=== PATIENT | male | born 1950 | race Caucasian/White ===

== ENCOUNTER 2017-07-15 05:59 | Inpatient (IN) | payer MEDICARE, BC ==
--- NOTE | 2017-07-04 02:01 | HP ---
AMENDED REPORT NOW INCLUDES COSIGNER DESIGNATION - ESIGNED BEFORE ADJUSTMENT HISTORY AND PHYSICAL: DATE OF ADMISSION/SURGERY: 07/15/17 DATE OF HISTORY AND PHYSICAL: 07/02/17 ACTIVITY: Dr. Rush Bose * (DICTATED BY SAKINA MEDEROS) PROCEDURE: Right total shoulder reverse. CHIEF COMPLAINT: Right shoulder pain. HISTORY OF PRESENT ILLNESS: Ezequiel is a 66-year-old male who presents to clinic for right shoulder pain for the last 15 years. He states 15 years ago, he fell off his front porch and hit his shoulder on concrete. He has had x-rays and MRI since then, which revealed arthritis and a rotator cuff tear. He has continued to have mild discomfort in the shoulder. He did see Dr. Vanegas several years ago, but was having minimal pain, and was not ready for surgery at that time. He is now in constant, achy, 2/10 pain in his lateral shoulder at rest with intermittent sharp shooting pain to 10/10 with certain movements. The pain is worse with overhead and behind the back movements. He reports intermittent snapping of the shoulder. He has had difficulty sleeping due to the pain. It is interfering with activities of daily living such as eating and combing. He is taking Tylenol and ibuprofen for pain daily. He reports no recent injuries. He has not yet received an injection in the shoulder. He denies numbness and tingling. He is right handed. He is here today for history and physical. He previously discussed the surgical options with Dr. Bose and all questions were answered at that time. He does endorse current cold with cough. He was seen by his primary care earlier this week and has appointment with his library clerk prior to his surgery. PAST MEDICAL HISTORY: Significant for hypertension, asthma, gout, arthritis, diverticulitis, and GERD along with obstructive sleep apnea. PAST SURGICAL HISTORY: Hernia repair x3, sinus surgery, and a knee replacement. CURRENT MEDICATIONS: Include: 1. Flomax. 2. Ranitidine. 3. Ventolin as needed. 4. Azelastine HCl ophthalmic. 5. Xopenex. 6. Theophylline. 7. Amlodipine. 8. Benicar. 9. Nexium. 10. Allopurinol. 11. Dulera. 12. Ipratropium. 13. Daily multivitamin. ALLERGIES: He has no known drug allergies and no allergies to tape or adhesives. FAMILY MEDICAL HISTORY: Significant for father with stroke, hypertension, and diabetes. Mother with a pacemaker and brother who at 49 had a heart attack. SOCIAL HISTORY: He is a never smoker. He does drink alcohol occasionally and he denies any illicit drug use. REVIEW OF SYSTEMS: No previous problems with anesthesia, no history of DVT, P.E. Positive for sinus headaches, cough, shortness of breath with exertion which is his baseline, his current complaint as well and he does state that he is able to walk up flight of stairs or city block without stopping. He denies history of infectious disease such as MRSA, hepatitis C, and HIV. Otherwise, 14 - point review of systems was negative. PHYSICAL EXAMINATION GENERAL: Ezequiel is a well-nourished, well-developed, 66-year-old male, in no acute distress. Alert and oriented x3. No gross neurologic deficiencies. He is ambulating without a limp. VITAL SIGNS: Height 71 inches, weight 235 pounds, pulse 68, blood pressure 122/ 72, respirations 16, temperature 98.5, pain level 3, BMI 32.8. HEENT: Normocephalic, atraumatic. Pupils equally round and reactive to light. Extraocular motions intact. NECK: Supple. No palpable cervical lymph nodes. Thyroid is smooth and nontender. PULMONARY: His lungs have multiple wheezes as well as some rhonchi. CARDIAC: Regular rate and rhythm with no murmurs, rubs, or gallops. No pedal edema. 2+ pedal pulses. ABDOMEN: Soft and nontender. MUSCULOSKELETAL: Right upper extremity, skin is intact. No warmth or erythema. Nontender to palpation. Forward flexion to 90 degrees, abduction to 90 degrees, external rotation to 75 degrees, internal rotation to posterior iliac spine. 4/5 strength and pain to supraspinatus, infraspinatus, belly press and bear hug. Positive Neer's, positive Speed's, Marsh-Fan, and O' Subhash. 2+ radial pulse. Sensation intact to light touch distally. Left upper extremity, skin is intact with no warmth or erythema. Nontender to palpation. Full range of motion. Forward flexion to 180, abduction to 180, external rotation 75, internal rotation to T12. 5/5 strength to rotator cuff testing. 2 + radial pulse. Sensation intact to light touch distally. DIAGNOSTIC STUDIES: Multiple view x-ray of the right shoulder revealed bone-on - bone arthritis with significant spurring inferior to the humeral head and superior migration of the humeral head. Prior MRI from [address] Bose and revealed a complete rotator cuff tear with superior migration of the humeral head. IMPRESSION: Severe arthritis and massive rotator cuff tear. PLAN: Ezequiel Harvey is scheduled to undergo right total shoulder reverse on 07/15/[address] Rush Bose. He will return 10 to 14 days postop for followup and suture removal. A prescription for Percocet was sent to the patient's pharmacy of record for postoperative pain management. I-STOP was checked prior to sending his prescription. He will plan to bring his CPAP to the hospital for his overnight stay. SAKINA MEDEROS [id number]/[facility] #: [id number] AZIZA
[~2017-07-15 05:59] MED LIST: Buffered Lidocaine 0.9% SYRIN* 5 ML/SYR SYRINGE INTRADERM ONE; Buffered Lidocaine 0.9% SYRIN* 5 ML/SYR SYRINGE ONE; DiMENhydriNATE IV* 50 MG/ML VIAL IV PUSH PRN; Famotidine IV* 10 MG/ML 2 ML (20 mg) ONE; HYDROmorphone INJ* 1 MG/ML CARPUJECT SYRINGE IV PRN; Levalbuterol 0.63MG/3ML NEB* UNIT OF USE INH PRN; Ondansetron INJ* 2 MG/ML VIAL IV PRN; PROCHLORPERAZINE INJ 5 MG/ML 2 ML VIAL IV PRN; Scopolamine 1.5 mg* PATCH TRANSDERM PRN; ceFAZolin 2 GM PREMIX (*) 2 GM/50 ML BAG IVPB ONE; fentaNYL* 50 MCG/ML 2 ML VIAL (100 MCG VIAL) IV PRN
[2017-07-15] MEDS ORDERED: Metoclopramide TAB* 10 MG PO ONE (06:00)
[2017-07-15] MEDS ORDERED: Dexamethasone TAB* 4 MG PO ONE (06:00)
[2017-07-15] MEDS ORDERED: Famotidine IV* 10 MG/ML 2 ML (20 mg) IV ONE (06:00)
[2017-07-15] MEDS ORDERED: Metoclopramide TAB* 10 MG ONE (06:15)
[2017-07-15] MEDS ORDERED: Dexamethasone TAB* 4 MG ONE (06:15)
[2017-07-15] MEDS ORDERED: Atracurium* 10 MG/ML 10 ML VIAL ONE (07:00)
[2017-07-15] MEDS ORDERED: fentaNYL* 50 MCG/ML 5 ML VIAL (250 MCG VIAL) ONE (07:00)
[2017-07-15] MEDS ORDERED: KETAMINE HCL* 50 MG/ML 10 ML VIAL ONE (07:01)
[2017-07-15] MEDS ORDERED: Midazolam* 1 MG/ML 10 ML VIAL (10 MG) ONE (07:01)
[2017-07-15] MEDS ORDERED: Propofol* 10 MG/ML 20 ML BTL IV PUSH ONE (10:13)
[2017-07-15] MEDS ORDERED: Glycopyrrolate IV* 0.2 MG/ML 1 ML VIAL ONE (10:13)
[2017-07-15] MEDS ORDERED: Lidocaine 2% PF * 5 ML VIAL ONE (10:13)
[2017-07-15] MEDS ORDERED: Neostigmine Methylsulfate* 2 MG/2 ML SYRINGE ONE (10:13)
[2017-07-15] MEDS ORDERED: EPHEDrine (Pressors)* 50 MG/ML VIAL ONE (10:13)
[2017-07-15] MEDS ORDERED: Phenylephrine INJ* 10 MG/ML 1 ML VIAL (10 MG) ONE ×2 (10:13→11:23)
[2017-07-15] MEDS ORDERED: Lidocaine 2% PF* 10 ML AMP ONE (10:13)
[2017-07-15] MEDS ORDERED: Morphine INJ* 10 MG/ML 1 ML CARPUJECT ONE (10:32)
[2017-07-15] MEDS ORDERED: Polyethylene Glycol 3350* 17 GM PACKET PO PRN (10:53)
[2017-07-15] MEDS ORDERED: Bisacodyl SUPP* 10 MG SUPP PR PRN (10:53)
[2017-07-15] MEDS ORDERED: Magnesium Hydroxide LIQ* 30 ML UDC PO PRN (10:53)
[2017-07-15] MEDS ORDERED: diPHENhydraMINE IV* 50 MG/ML 1 ml VIAL (BENADRYL) IV PRN (10:53)
[2017-07-15] MEDS ORDERED: Ondansetron TAB* 4 MG PO PRN (10:53)
[2017-07-15] MEDS ORDERED: Ondansetron INJ* 2 MG/ML VIAL IV PRN (10:53)
[2017-07-15] MEDS ORDERED: Morphine INJ* 2 MG/ML 1 ML SYRINGE (TWO MG - NEW SYRINGE VERSION) IV PRN (10:53)
[2017-07-15] MEDS ORDERED: diPHENhydraMINE PO* 25 MG PO PRN (10:53)
[2017-07-15] MEDS ORDERED: oxyCODONE/Acetamin 5/325 MG* TAB PO PRN (10:53)
[2017-07-15] MEDS ORDERED: oxyCODONE TAB* 5 MG TAB PO PRN (10:53)
[2017-07-15] MEDS ORDERED: Acetaminophen TAB* 325 MG PO PRN (10:53)
[2017-07-15] MEDS ORDERED: Temazepam CAP* 15 MG PO PRN (10:53)
[2017-07-15] MEDS ORDERED: Levalbuterol 1.25MG/0.5ML NEB INH PRN (11:00)
[2017-07-15] MEDS ORDERED: Albuterol HFA INHALER* 8 gm MDI INH PRN (11:00)
[2017-07-15] MEDS ORDERED: AZELASTINE 0.05% BOTH EYES PRN (11:00)
--- NOTE | 2017-07-15 12:11 | RAD ---
Indication: Postop reversed total RIGHT glenohumeral joint replacement. Comparison: January 01, 2017 Technique: Internal rotation AP, external rotation Grashey, scapular Y, axillary views RIGHT shoulder Report: Reversed glenohumeral joint prosthesis in place with normal alignment. No periprosthetic fracture evident. Surgical drain in place. Postoperative soft tissue edema and gas noted. IMPRESSION: Unremarkable immediate postop appearance of the RIGHT total glenohumeral joint replacement.
--- NOTE | 2017-07-15 12:15 | RAD ---
Indication: Shortness of breath postop RIGHT total shoulder replacement. Comparison: July 02, 2017 Technique: Upright AP 1148 hours Report: Low lung volumes for this patient compared with the prior exam with moderate elevation of the RIGHT hemidiaphragm and proportional basilar atelectasis. No disproportionate alveolar consolidation to suggest pneumonia. Negative for pleural effusion or pneumothorax. The heart, pulmonary vasculature, and mediastinal contours are unremarkable. IMPRESSION: Low lung volumes with moderate elevation of the RIGHT hemidiaphragm with proportional compressive atelectasis.
[2017-07-15] MEDS ORDERED: Phenylephrine IV* 40 MCG/ML 10 ML SYRINGE ONE (12:35)
[2017-07-15 14:28] LABS: Hematocrit 38 % (42-52); Hemoglobin 12.8 g/dl (14.0-18.0); Mean Corpuscular HGB Conc 33 g/dl (31-36); Mean Corpuscular Hemoglobin 31 pg (27-31); Mean Corpuscular Volume 94 fL (80-94); Mean Platelet Volume 9 um3 (7.4-10.4); Red Blood Count 4.11 10^6/ul (4.0-5.4); Red Cell Distribution Width 14 % (10.5-15); White Blood Count 20.8 10^3/ul (3.5-10.8)
[2017-07-15 14:42] LABS: Albumin 3.4 g/dL (3.2-5.2); BUN/Creatinine Ratio 18.3 (8-20); Calcium 9.3 mg/dL (8.6-10.3); EGFR Non-African American 67.7 (>60); Potassium 3.7 mmol/L (3.5-5.0); Total Bilirubin 0.5 mg/dL (0.2-1.0); Total Protein 6.4 g/dL (6.4-8.9)
[2017-07-15 14:52] LABS: Magnesium 1.8 mg/dL (1.9-2.7)
[2017-07-15] MEDS ORDERED: ceFAZolin 1 GM VIAL(*) 1 GM in NS 0.9% 50 ML* 50 ML IVPB SCH (15:30)
[2017-07-15] MEDS ORDERED: ceFAZolin 1 GM ADVAN(*) 1 GM ADDV.VIAL IVPB ONE (15:36)
[2017-07-15] MEDS ORDERED: Magnesium Sulfate 2 GM IV* 2 GM/50 ML BAG IVPB ONE (16:00)
[2017-07-15] MEDS ORDERED: Bupivacaine 0.25% SDV* 30 ML ONE (16:14)
[2017-07-15] MEDS ORDERED: Fluticasone NASAL SPRAY 50MCG* 16 gm SPRAY BTL BOTH NARES SCH (18:00)
[2017-07-15] MEDS ORDERED: THEOPHYLLINE PO SCH (18:00)
[2017-07-15] MEDS ORDERED: Omeprazole CAP* 20 MG PO SCH (18:00)
[2017-07-15] MEDS ORDERED: amLODIPine TAB* 5 MG PO SCH (18:00)
[2017-07-15] MEDS ORDERED: Tamsulosin CAP* 0.4 MG PO SCH (18:00)
[2017-07-15] MEDS ORDERED: Piperacillin/Tazobac ADVAN(*) 3.375 GM in NS 0.9% 100 ML* 100 ML IVPB ONE (20:00)
[2017-07-15] MEDS ORDERED: Zosyn per Pharmacy* NOTE FOLLOW UP SCH (20:00)
[2017-07-15] MEDS ORDERED: ZOSYN 3.375 GM x ONE DOSE over 30 miuntes IVPB ×2 (20:00)
[2017-07-15] MEDS: Mometasone/Formoter 200/5 MDI INH SCH (20:32)
[2017-07-15] MEDS ORDERED: Theophylline TAB* 300 MG PO SCH (20:32)
--- NOTE | 2017-07-15 23:48 | CONS ---
CONSULTATION REPORT: DATE OF CONSULT: 07/15/17 PRINCIPAL ORTHOPEDIC SURGEON: Rush Bose MD PRIMARY CARE PHYSICIAN: Janette Vasquez NP, [facility]. REASON FOR CONSULT: Postoperative and intraoperative hypotension followed by tachycardia and lactic acidosis. HISTORY OF PRESENT ILLNESS: Ezequiel Harvey is a 66-year-old male with PMH as above, presenting for right shoulder surgery on the day of admission. Fifteen years prior, he had fallen on to concrete and subsequent imaging has revealed arthritis and rotator cuff tear. He had a preoperative H and P on 07/02/17, at which time he was noted to have a cough. He actually has a chronic cough which is productive. He was referred to [facility], given a Z-MARBELLA and 5 days of 50 mg prednisone which he finished approximately 8 days prior to admission on the . The patient received his olmesartan on the morning of admission and Norvasc night before admission. The patient reportedly required pressors mostly throughout the surgery. Evaluation of the anesthesia record is difficult to interpret given handwriting, nadirs of 72/51 recorded in the chart. In PACU, patient was also initially requiring pressors, therefore, hospitalist service was consulted for hypotension and possible need for transfer to ICU. The patient, however, did recover. His heart rate did increase to the low 100s and has been sustaining in the 120s. Lactic acidosis of 2.7 initially along with the white count of 20.8, hemoglobin 12.8, hematocrit 38, magnesium 1.8, creatinine 1.09 notable during evaluation in the PACU initially, repeated lactic acid lexi slightly to 4.0. The patient has been afebrile. Of note, he does report recent Xolair injections for his severe persistent asthma on Thursday prior to admission and aforementioned Z-MARBELLA for his chronic cough. PAST MEDICAL HISTORY: Hypertension, asthma, gout, arthritis, diverticulitis, GERD, and obstructive sleep apnea on nocturnal CPAP. MEDICATIONS: Home medications include: 1. Albuterol inhaler 1 puff inhaled q.4 hours p.r.n. 2. Allopurinol 300 mg p.o. q.a.m. 3. Amlodipine 10 mg p.o. q.p.m. 4. Aspirin 81 mg p.o. q.p.m. 5. Azelastine 0.05% ophthalmic drops both eyes b.i.d. p.r.n. 6. Multivitamin. 7. Theophylline 450 mg p.o. q.p.m. and 600 mg p.o. q.a.m. 8. Nexium 40 mg p.o. q.p.m. 9. Xopenex 1.25 mg q.6 hours p.r.n. inhaled. 10. Zantac 300 mg p.o. q.a.m. 11. Flomax 0.4 mg p.o. q.p.m. 12. Dulera 2 puffs inhaled b.i.d. 13. Benicar. Of note, the patient's has documentation of 40 mg p.o. q.a.m. while the chart documents olmesartan/hydrochlorothiazide 20/12.5 mg p.o. q.a.m. 14. Flonase 2 sprays both nares q.p.m. 15. Xolair 300 mg subcutaneous. ALLERGIES: No known drug allergies. FAMILY HISTORY: Mother with hypertension, dad CVA, and maternal grandfather prostate cancer. SOCIAL HISTORY: The patient is a never smoker and nondrinker. Retired. Formerly worked for [employer]. Glory Harvey is his medical surrogate, he is a full code. REVIEW OF SYSTEMS: A complete 14-point review of systems was negative except as per HPI. PHYSICAL EXAM: The patient was examined twice, first in the PACU and then on the floor. General Appearance: Normocephalic and atraumatic. Pupils are equal , round, and reactive to light. Extraocular motions intact. Neck: Supple. No cervical lymphadenopathy. Moist mucous membranes. Pulmonary: Anteriorly clear to auscultation bilaterally without wheezing, rales, or rhonchi. Cardiovascular: Tachycardic, no murmurs appreciated. Abdomen: Soft, nontender , and nondistended. Extremities: Warm and well perfused. No peripheral edema. Neuro: Moving all extremities. Sensation is intact. Cleat Maker strength intact. Skin: No lesions, no rashes, no nodules. DIAGNOSTIC STUDIES/LAB DATA: White count 20.8, hemoglobin 12.8, hematocrit 38, platelets 221,000. Sodium 136, potassium 3.7, chloride 105, carbon dioxide 23, BUN 20, creatinine 1.09, lactic acid 2.7 increased to 4.0, glucose 196, magnesium 1.8, total bili 0.5, AST 23, ALT 19, alk phos 69, and albumin 3.4. IMAGING: Recent chest x-ray demonstrates low lung volumes with moderate elevation of the right hemidiaphragm with proportional compressive atelectasis. Shoulder x- ray demonstrates unremarkable immediate postoperative appearance of the right total glenohumeral joint replacement. EKG demonstrates sinus tachycardia, heart rate 101, left axis deviation, no ST elevations or depressions. Intervals normal. ASSESSMENT AND PLAN: The patient is a 66-year-old male with complications of postop hypotension, tachycardia, lactic acidosis after reverse total right shoulder operation. Labs notable for leukocytosis, worsening lactic acidosis despite IV fluids and no excessive blood loss reported in the OR. He has recently been treated with azithromycin for his chronic cough and had a Xolair injection recently. He is getting postoperative cephazolin, but we will start empiric Zosyn for now to empirically cover for unknown etiology. Continue LR 150 cc an hour overnight. Repeat lactic acid in the morning. Blood pressures are stable. We will get an echocardiogram as I do not see that documented to investigate for possible valvular abnormalities as a reason for his anesthesia-induced hypotension. His lactic acidosis could secondary to just be due to a bit of ischemia secondary to his operative hypotension. For his asthma, we will continue his albuterol inhalers, theophylline. For DVT prophylaxis, he is on Lovenox 40 mg q.24 hours. His leukocytosis could be related to some of the dexamethasone that he got 12 mg once in the morning. Consider cortisol level for adrenal insufficiency in the setting of recent steroid use causing his hypotension, though now is resolved. For his history of gout, continue his allopurinol, postoperative pain per orthopedic service. [id number]/[facility] #: [id number] AZIZA
[2017-07-16] MEDS: oxyCODONE/Acetamin 5/325 MG* TAB PO PRN ×3 (01:42→13:48)
[2017-07-16 06:13] LABS: Hematocrit 34 % (42-52); Hemoglobin 11.5 g/dl (14.0-18.0)
[2017-07-16 06:26] LABS: BUN/Creatinine Ratio 15.9 (8-20); Calcium 9.2 mg/dL (8.6-10.3); EGFR African American 111.4 (>60); EGFR Non-African American 86.6 (>60); Potassium 4.2 mmol/L (3.5-5.0)
[2017-07-16] MEDS: Mometasone/Formoter 200/5 MDI INH SCH (08:06)
--- NOTE | 2017-07-16 08:44 | PN ---
Progress Note - Progress Note Date of Service: 07/16/17 SOAP: Subjective: [] Patient seen OOB in chair. His pain is well controlled and he feels he has done well with physical therapy. He denies any RUE numbness, chest pain or SOB. Objective: [] Vital Signs Temp 97.5 F 07/16/17 02:57 Pulse 86 07/16/17 08:09 Resp 16 07/16/17 08:09 BP 131/75 07/16/17 02:57 Pulse Ox 98 07/16/17 08:09 Intake & Output 07/15/17 07/16/17 07/16/17 18:59 06:59 18:59 Intake Total 4710 2174 Output Total 950 2775 Balance 3760 -601 Weight 233 lb 11.2 oz Intake: IV Fluids 3550 1509 LR 3500 1499 NS 50ML, Cefazolin 2G 50 Zosyn 10 IVPB 150 Magnesium 50 Zosyn 100 Oral 1160 515 Output: Hemovac Amount #1 350 125 Urine 350 2650 Estimated Blood Loss 250 Other: Estimated Void Medium # Bowel Movements 0 # Voids 1 Laboratory Last Values WBC 20.8 10^3/ul (3.5-10.8) H 07/15/17 14:10 RBC 4.11 10^6/ul (4.0-5.4) 07/15/17 14:10 Hgb 11.5 g/dl (14.0-18.0) L 07/16/17 05:59 Hct 34 % (42-52) L 07/16/17 05:59 MCV 94 fL (80-94) 07/15/17 14:10 MCH 31 pg (27-31) 07/15/17 14:10 MCHC 33 g/dl (31-36) 07/15/17 14:10 RDW 14 % (10.5-15) 07/15/17 14:10 Plt Count 221 10^3/ul (150-450) 07/15/17 14:10 MPV 9 um3 (7.4-10.4) 07/15/17 14:10 Neut % (Auto) 95.4 % (38-83) H 07/15/17 14:10 Lymph % (Auto) 2.7 % (25-47) L 07/15/17 14:10 [place] % (Auto) 1.7 % (1-9) 07/15/17 14:10 Eos % (Auto) 0 % (0-6) 07/15/17 14:10 Baso % (Auto) 0.2 % (0-2) 07/15/17 14:10 Absolute Neuts (auto) 19.8 10^3/ul (1.5-7.7) H 07/15/17 14:10 Absolute Lymphs (auto) 0.6 10^3/ul (1.0-4.8) L 07/15/17 14:10 Absolute Monos (auto) 0.4 10^3/ul (0-0.8) 07/15/17 14:10 Absolute Eos (auto) 0 10^3/ul (0-0.6) 07/15/17 14:10 Absolute Basos (auto) 0 10^3/ul (0-0.2) 07/15/17 14:10 Absolute Nucleated RBC 0.01 10^3/ul 07/15/17 14:10 Nucleated RBC % 0 07/15/17 14:10 Sodium 137 mmol/L (133-145) 07/16/17 05:58 Potassium 4.2 mmol/L (3.5-5.0) 07/16/17 05:58 Chloride 106 mmol/L (101-111) 07/16/17 05:58 Carbon Dioxide 24 mmol/L (22-32) 07/16/17 05:58 Anion Gap 7 mmol/L (2-11) 07/16/17 05:58 BUN 14 mg/dL (6-24) 07/16/17 05:58 Creatinine 0.88 mg/dL (0.67-1.17) 07/16/17 05:58 Est GFR ( Amer) 111.4 (>60) 07/16/17 05:58 Est GFR (Non-Af Amer) 86.6 (>60) 07/16/17 05:58 BUN/Creatinine Ratio 15.9 (8-20) 07/16/17 05:58 Glucose 138 mg/dL (70-100) H 07/16/17 05:58 Lactic Acid 0.9 mmol/L (0.5-2.0) 07/16/17 05:58 Calcium 9.2 mg/dL (8.6-10.3) 07/16/17 05:58 Magnesium 1.8 mg/dL (1.9-2.7) L 07/15/17 14:10 Total Bilirubin 0.50 mg/dL (0.2-1.0) 07/15/17 14:10 AST 23 U/L (13-39) 07/15/17 14:10 ALT 19 U/L (7-52) 07/15/17 14:10 Alkaline Phosphatase 69 U/L (34-104) 07/15/17 14:10 Total Protein 6.4 g/dL (6.4-8.9) 07/15/17 14:10 Albumin 3.4 g/dL (3.2-5.2) 07/15/17 14:10 Globulin 3.0 g/dL (2-4) 07/15/17 14:10 Albumin/Globulin Ratio 1.1 (1-3) 07/15/17 14:10 Procalcitonin 0.1 ng/mL (<0.6) 07/15/17 14:10 General: Well appearing, NAD RUE: Drain pulled without complication. Sensation and motor function intact distally throughout all digits. Radial pulse 2+. Brisk capillary refill distally. Assessment: []POD 1 sp Right total shoulder arthroplasty Plan: []Nonweightbearing RUE. No active ROM of shoulder. Continue elbow, wrist and hand pendulum exercises. No DVT/PE prophylaxis needed. Continue ASA 81 mg qd as regular home med. Discussed with Dr Joyner, hospitalist, prior to discharge. No need for further medical workup prior to discharge and no need for outpatient cardio workup <Ivon Foster - Last Filed: 07/16/17 13:14> - Progress Note SOAP: Subjective: [] Objective: [] Assessment: [] Plan: [] <Rush Bose - Last Filed: 07/18/17 09:10> Attestation Statement Scribe Attestation: Pt seen an examined at 6:30 AM. doing well. pain controlled. Denies numbness and tingling. AFVSS comfortable in bed. AAOx3. sling in place. dressing and drain in place. able to flex/ext digits, SILT grossly distally with 2+ radial pulse. A/P POD#1 from R TSA doing well, s/p hypotension post op drain to be pulled later today complete IV abx analgesia D/C when stable. PT/OT today <Rush Bose - Last Filed: 07/18/17 09:10>
[2017-07-16] MEDS ORDERED: Theophylline TAB* 300 MG PO SCH ×2 (09:00→18:00)
[2017-07-16] MEDS ORDERED: Hydrochlorothiazide TAB* 25 MG PO SCH (09:00)
[2017-07-16] MEDS ORDERED: Famotidine TAB* 20 MG PO SCH (09:00)
[2017-07-16] MEDS ORDERED: Allopurinol TAB* 300 MG PO SCH (09:00)
[2017-07-16] MEDS ORDERED: Valsartan TAB* 160 MG PO SCH (09:00)
[2017-07-16] MEDS ORDERED: [UNRECOGNIZED DRUG - OTHER] PO SCH (09:00)
[2017-07-16] MEDS ORDERED: HYDROCHLOROTHIAZIDE PO SCH (09:00)
[2017-07-16] MEDS ORDERED: Enoxaparin(*) 40 MG/0.4 ML SYR SUBCUT SCH (09:00)
[2017-07-16] MEDS ORDERED: Multivitamins/Minerals TAB PO SCH (09:00)
--- NOTE | 2017-07-16 09:13 | ECHO ---
Patient: LUCIANO VIEIRA [facility] Rec#: [id number] : 1950 Date: 07/16/2017 Age: 66y Height: 180.34 cm / 71.0 in Weight: 104.33 kg / 229.9 lbs Sex: M BSA: 2.24 Room#: 431 Admit Date#: 07/15/2017 Type: Inpatient Referring: Agustin Joyner Reading: Tim Nagel DO Intelligence Officer Basic: Cher Yu RDCS CC: Janette Vasquez NP Transthoracic Echocardiogram Indication: Abnormal EKG post op. BP: 131/75 HR: 80 Rhythm: NSR with PVCs Findings History: HTN, gout, arthritis, GERD, asthma, DEYSI on CPAP, s/p total right shoulder reverse. Technical Comments: The study quality is fair. The study is technically limited due to patient body habitus. Completed at 0830. Left Ventricle: The left ventricular chamber size is normal. Mild concentric left ventricular hypertrophy is observed. Global left ventricular wall motion and contractility are within normal limits. There is normal left ventricular systolic function. The estimated ejection fraction is 55-60%. Abnormal left ventricular diastolic filling is observed, consistent with impaired relaxation. Left Atrium: The left atrium is mildly dilated. Right Ventricle: The right ventricle is mildly dilated. The right ventricular global systolic function is normal. Right Atrium: The right atrium is mildly dilated. Aortic Valve: The aortic valve is trileaflet. The aortic valve leaflets are mildly thickened. There is a trace of aortic regurgitation. There is no evidence of aortic stenosis. Mitral Valve: The mitral valve leaflets are mildly thickened. There is a trace of mitral regurgitation. There is no evidence of mitral stenosis. Tricuspid Valve: The tricuspid valve leaflets are normal. There is trace tricuspid regurgitation. No pulmonary hypertension is noted. Pulmonic Valve: The pulmonic valve appears normal. There is trace to mild pulmonic regurgitation. There is no pulmonic stenosis. Pericardium: There is no significant pericardial effusion. Aorta: There is no dilatation of the ascending aorta. The aortic arch is not well visualized. The aortic root is normal in size. Pulmonary Artery: The main pulmonary artery is not well visualized. Venous: The inferior vena cava appears normal in size. There is a greater than 50% respiratory change in the inferior vena cava dimension. Conclusions The left ventricular chamber size is normal. Mild concentric left ventricular hypertrophy is observed. Global left ventricular wall motion and contractility are within normal limits. There is normal left ventricular systolic function. The estimated ejection fraction is 55-60%. The left atrium is mildly dilated. The right ventricle is mildly dilated. The right ventricular global systolic function is normal. The right atrium is mildly dilated. No significant valvular abnormalities noted Normal estimated PA systolic pressure No prior studies available for comparison at time of interpretation Measurements Name Value Normal Range RVIDd (AP) 2D 3.6 cm (0.9 - 2.6) RAd ISD 4CH 5.6 cm (3.4 - 4.9) RA (A4C)W 5 cm (2.9 - 4.6) IVSd (2D) 1.1 cm (0.6 - 1) LVPWd (2D) 1.1 cm (0.6 - 1) LVIDd (2D) 5.3 cm (3.6 - 5.4) LVIDs (2D) 3 cm - LV FS (2D) 48 % (25 - 45) Aortic Annulus 2.2 cm (1.4 - 2.6) Ao root diameter (2D) 3.5 cm (2.1 - 3.5) Ascending Ao 3 cm (2.1 - 3.4) LA dimension (AP) 2D 3.9 cm (2.3 - 3.8) LAd ISD 4CH 5.9 cm (2.9 - 5.3) LA ISD 4CH W 4.8 cm (2.5 - 4.5) Name Value Normal Range LA ESV SP 4CH (A/L) 77 ml - LA ESV SP 2CH (A/L) 76 ml - LA ESV BP (A/L) 78 ml - LA ESV BP (A/L) index 35 ml/m2 - LA ESV SP 4CH (MOD) 71 ml - LA ESV SP 2CH (MOD) 69 ml - Name Value Normal Range MV E-wave Vmax 1.01 m/sec - MV deceleration time 230 msec - MV A-wave Vmax 1.32 m/sec - MV E:A ratio 0.77 ratio - LV septal e' Vmax 0.07 m/sec - LV lateral e' Vmax 0.08 m/sec - LV E:e' septal ratio 14.43 ratio - LV E:e' lateral ratio 12.63 ratio - Name Value Normal Range AV Vmax 1.7 m/sec - AV VTI 32.18 cm - AV peak gradient 12.06 mmHg - AV mean gradient 6.36 mmHg - LVOT Vmax 1.3 m/sec - LVOT VTI 27.77 cm - LVOT peak gradient 6.73 mmHg - LVOT mean gradient 3 mmHg - Name Value Normal Range TR Vmax 2.5 m/sec - TR peak gradient 25 mmHg - RAP 3 mmHg - RVSP 28 mmHg - IVC diameter 1.9 cm - Name Value Normal Range PV Vmax 0.93 m/sec - PV peak gradient 3.51 mmHg - DC end-diastolic Vmax 1.27 m/sec -
[2017-07-16 12:53] VITALS: BP 135/65
[2017-07-16] MEDS ORDERED: Aspirin EC Low Dose* 81 MG TAB.EC PO SCH (18:00)
--- NOTE | 2017-07-16 19:34 | CONSULT ---
Subjective Date of Service: 07/16/17 Interval History: Tachycardia resolved, Lactic Acid resolved. Pt feeling well. ECHO in AM without any valvular abnormalities. Review of Systems - Measurements Intake and Output: Intake and Output Last 24 Hours 07/14/17 07/15/17 07/16/17 07/17/17 06:59 06:59 06:59 06:59 Intake Total 6884 272 Output Total 3725 Balance 3159 272 Weight 105.687 kg 106.005 kg Intake: IV Fluids 5059 272 LR 4999 272 NS 50ML, Cefazolin 2G 50 Zosyn 10 IVPB 150 Magnesium 50 Zosyn 100 Oral 1675 Output: Hemovac Amount #1 475 Urine 3000 Estimated Blood Loss 250 Other: Estimated Void Medium # Bowel Movements 0 # Voids 1 - Review of Systems General Comments: NAD Constitutional Symptoms: Negative: Weakness, Fatigue, Fever, Night Sweats, Unexplained Falls Dermatology: Positive: Normal HEENT: Positive: Normal Eyes: Positive: Normal Thyroid: Positive: Normal Pulmonary: Positive: Cough, Asthma Negative: Wheezing, Shortness of Breath, Home Oxygen Cardiology: Positive: Normal Negative: Chest Pain, Shortness of Breath, Palpitations, Edema Gastroenterology: Positive: Normal Genital - Urinary: Positive: Normal Musculoskeletal: Positive: Other - s/p reverse right shoulder for OA, rotator cuff tear Endocrinology: Positive: Normal Neurology: Positive: Normal Psychiatry: Positive: Normal Objective Vital Signs 07/15/17 07/15/17 07/15/17 19:47 20:00 20:12 Temperature 98.7 F Pulse Rate 109 111 109 Respiratory 16 20 Rate Blood Pressure 129/66 (mmHg) O2 Sat by Pulse 95 94 93 Oximetry 07/15/17 07/15/17 07/16/17 20:37 23:41 00:08 Temperature 98.3 F Pulse Rate 96 Respiratory 16 Rate Blood Pressure 122/60 (mmHg) O2 Sat by Pulse 93 92 Oximetry 07/16/17 07/16/17 07/16/17 01:42 02:57 04:15 Temperature 97.5 F Pulse Rate 94 Respiratory 20 16 18 Rate Blood Pressure 131/75 (mmHg) O2 Sat by Pulse 94 Oximetry 07/16/17 07/16/17 07/16/17 08:00 08:09 08:46 Temperature 97.3 F Pulse Rate 86 95 Respiratory 18 16 16 Rate Blood Pressure 146/71 (mmHg) O2 Sat by Pulse 96 98 96 Oximetry 07/16/17 07/16/17 07/16/17 08:53 11:45 13:48 Temperature 97.7 F Pulse Rate 87 Respiratory 16 18 16 Rate Blood Pressure 135/65 (mmHg) O2 Sat by Pulse 96 Oximetry 07/16/17 13:49 Temperature Pulse Rate Respiratory 16 Rate Blood Pressure (mmHg) O2 Sat by Pulse Oximetry Oxygen Devices in Use Now: Nasal Cannula Appearance: NAD Eyes: No Scleral Icterus, PERRLA Ears/Nose/Mouth/Throat: NL Teeth, Lips, Gums, Mucous Membranes Moist Neck: NL Appearance and Movements; NL JVP Respiratory: Symmetrical Chest Expansion and Respiratory Effort, Clear to Auscultation Cardiovascular: NL Sounds; No Murmurs; No JVD, RRR Abdominal: NL Sounds; No Tenderness; No Distention, No Hepatosplenomegaly Extremities: No Edema, - - right shoulder sling Skin: No Rash or Ulcers, No Nodules or Sclerosis Neurological: Alert and Oriented x 3, NL Sensation, NL Muscle Strength and Tone Nutrition: Taking PO's Result Diagrams: 07/16/17 05:59 07/16/17 05:58 Additional Lab and Data: Laboratory Results - last 24 hr 07/15/17 07/16/17 07/16/17 14:10 05:58 05:58 Hgb Hct Sodium 137 Potassium 4.2 Chloride 106 Carbon Dioxide 24 Anion Gap 7 BUN 14 Creatinine 0.88 Est GFR ( Amer) 111.4 Est GFR (Non-Af Amer) 86.6 BUN/Creatinine Ratio 15.9 Glucose 138 H Lactic Acid 0.9 Calcium 9.2 Procalcitonin 0.1 07/16/17 05:59 Hgb 11.5 L Hct 34 L Sodium Potassium Chloride Carbon Dioxide Anion Gap BUN Creatinine Est GFR ( Amer) Est GFR (Non-Af Amer) BUN/Creatinine Ratio Glucose Lactic Acid Calcium Procalcitonin Microbiology and Other Data: Microbiology 07/15/17 08:34 Tissue - Shoulder Right Wound Gram Stain - Final 07/15/17 08:34 Tissue - Shoulder Right Tissue Culture - Preliminary No Growth Day 1 07/15/17 08:34 Tissue - Shoulder Right Skin and Soft Tissue MRSA/MSSA (PCR - Final Mrsa Negative S.aureus Negative Assessment/Plan - Billing Plan By Medical Problem: 1. Perioperative hypotension. Tachycardia. Leukocytosis (did get dexamethasone) - procalcitonin negative. - stop empiric zosyn. s/p 2 doses ancef also. no localized source of infection. Tissue cultures negative. Afebrile and no Bcx were drawn. - ECHO w/o valvular abnormalities - BP, HR both have normalized. - stop IVF - discharge pending 2. s/p reverse right shoulder replacement, rehab with PT and per ortho. 3. asthma, severe persistent - continue theophyline, inhalers prn, xolair VTE PPX: per ortho Diet: regular Code Status: FULL Admission Status and Rationale: discharge order placed. Attending: Agustin Joyner
--- NOTE | 2017-07-17 11:34 | DS ---
DISCHARGE SUMMARY: DATE OF ADMISSION: 07/15/17 DATE OF DISCHARGE: 07/16/17 DATE OF SURGERY: 07/15/17 SURGEON: Rush Bose MD * (DICTATED BY SAKINA LIU) PROCEDURE: Right total shoulder reverse. CHIEF COMPLAINT: Right shoulder pain. HISTORY: Ezequiel is a 66-year-old male with right shoulder pain x16 years after falling off a porch and hitting his shoulder. He had imaging that revealed arthritis and rotator cuff tear. At this point, he has a constant achy 2/10 pain of his lateral shoulder with intermittent 10/10 sharp pain. He agreed to a right total shoulder reverse. HOSPITAL COURSE: The patient was admitted to [facility] on 07/15/17 when he underwent a right total shoulder reverse without complications. He did become hypotensive during surgery followed by tachycardia. He ended up requiring pressors in surgery and in the PACU his lactic acid lexi slightly to 4.0. Patient was afebrile. On postop day 1, white blood cell count of 20.8, hemoglobin 12.8, hematocrit 38, lactic acid 2.7, magnesium 1.8. He was followed by the hospitalist service that his white blood cell count could be due to dexamethasone use. Later in the day on 07/15/17, his lactic acid was 4.0. On 07/16, hemoglobin 11.5, hematocrit 34, lactic acid 0.9. His electrocardiogram on 07/15 showed sinus tachycardia, markedly posterior QRS axis, transition with no significant changes since the previous record. On 07/16, postop day 1, and labs were already reviewed. Reports he had an echocardiogram , left ventricular chamber size is normal. Mild concentric left ventricular hypertrophy is observed, global left ventricular wall motion and contractility are within limits. There is normal left ventricular systolic function. The ejection fraction is 55 to 60. The left atrium is mildly dilated. The right ventricle is mildly dilated. The right ventricle global systolic function is normal. The right atrium is mildly dilated. No significant valvular abnormality is noted. Normal estimated PA systolic pressure. Exam on 07/16, well appearing, in no acute distress. Drain was pulled without complication with tip intact. Sensation and motor function were intact distally throughout the digits of right hand. Radial pulse 2+ and brisk capillary refill distally. Vital signs on the day of discharge: Temp 97.7, pulse rate 87, respiratory rate 18, oxygen saturation 96%, blood pressure 135/65. Spoke with hospitalist Dr. Joyner prior to discharge to confirm that no further medical workup or cardiac workup were needed at this time. Patient on postop day 1 was considered medically stable for discharge. DISCHARGE CONDITION: Stable. DISCHARGE MEDICATIONS: 1. Theophylline 450 mg q. p.m. 2. Multivitamin one tab p.o. q. a.m. 3. Azelastine 1 drop both eyes p.r.n. at 0.05 mg. 4. Aspirin 81 mg q. p.m. 5. Allopurinol 300 mg q. a.m. 6. Amlodipine 10 mg q. p.m. 7. Theophylline 600 mg q. a.m. 8. Albuterol one puff inhaled q. 4 hours p.r.n. 9. Ranitidine 300 mg p.o. q. a.m. 10. Nexium 40 mg q. p.m. 11. Levalbuterol 1.25/0.5 mL neb 1.25 mg inhaled q. 6 hours p.r.n. 12. Tamsulosin 0.4 mg p.m. 13. Benicar 1 tab p.o. q.a.m., that is 20/12.5. 14. Mometasone/formoterol 200/5 MDI 2 puffs inhaled b.i.d. 15. Fluticasone nasal 2 sprays both nares q. p.m. 16. Xolair 150 mg/1.2 mL syringe take 300 mg subcutaneously; see instructions. 17. Acetaminophen 650 mg p.o. q. 4 hours. 18. Oxycodone acetaminophen 5/325 one to two tabs p.o. q. 4 to 6 hours p.r.n., max daily dose of 8. DISCHARGE INSTRUCTIONS: Nonweightbearing for right upper extremity, no active range of motion of the right shoulder. Continue wrist, elbow, and hand pendulum shown by PT. Wound care, okay to shower after 07/18/17. No bathing, swimming, or submerging wound. Use gentle soap, pat dry, cover with gauze, James wrap, or tape. Call orthopedic office for increased drainage, redness, increased pain, and fever. Go to ER with shortness of breath or chest pain. Regular diet. May use stool softeners as needed. Call office if more than 48 hours before bowel movement. Pain control with Percocet 5/325 one to two tabs by mouth every 4 to 6 hours, max at 8 per day. Follow up with Dr. Bose within 10 to 14 days sooner as needed. SAKINA LIU [id number]/[facility] #: [id number] MTDJessica
[2017-07-18] MEDS ORDERED: Scopolamine PATCH Remove* 1 NOTE MISC PATCH OFF ONE (05:45)
--- NOTE | 2017-07-19 08:29 | OP ---
CC: PCP, MARJORIE Gooden * DATE OF OPERATION: 07/15/17 - ROOM #431 DATE OF : 50 SURGEON: Rush Bose MD. HEALTH CLINICIAN: SAKINA Laurent, and SAKINA Rawls. ANESTHESIOLOGIST: Dr. Em. ANESTHESIA: General with interscalene block. PRE-OP DIAGNOSIS: Right shoulder rotator cuff arthropathy. POST-OP DIAGNOSIS: Right shoulder rotator cuff arthropathy. OPERATIVE PROCEDURE: Right shoulder reverse arthroplasty and open biceps tenodesis. COMPLICATIONS: None. DRAINS: Drains x1. IMPLANTS USED: Robertson size 19 thin stem with reverse body, glenoid SR, glenoid plate with median T2 post with 35 mm and 20 mm screws. Glenosphere was a 36 mm eccentric glenosphere and a standard liner. INDICATIONS: Ezequiel Harvey is a 66-year-old male who has had persistent shoulder pain with confirmed rotator cuff tear with significant osteoarthritis. He has failed conservative management and elected to proceed with surgical treatment. Risks and benefits were discussed in length and included, but are not limited to bleeding; infection; damage to nerves vessels, surrounding structures; wound nonhealing; persistent pain; need for further surgery; scarring; stiffness; incomplete relief of symptoms and risks of anesthesia. He underwent preoperative medical risk assessment and was deemed optimized for surgery. DESCRIPTION OF PROCEDURE: The patient was greeted in the preoperative area by the attending surgeon. Correct extremity was marked and consent was confirmed. The patient was brought back to the operating suite. He then under-went interscalene nerve block by the anesthesiologist, which was done without difficulty. Then he was brought to the operating table. He was placed supine position on the operating table. He then underwent general anesthesia, endotracheal intubation. After which he was appropriately positioned in the bed into a lazy beach chair position. The right shoulder was then prepped and draped in usual sterile fashion with chlorhexidine soap scrub and alcohol wipe and final prep with ChloraPrep. After appropriate surgical pause indicating side, site, procedure, and administration of antibiotics, a deltopectoral incision was made and soft tissues were carefully dissected to expose the cephalic vein, which was taken laterally with the deltoid. The pec was taken medially. Soft tissues were carefully dissected. The clavipectoral fascia was identified. The coracoid was identified and a blunt Hohmann was placed superior to that for retraction. The Cobell device was then used for deltopectoral retraction. The lateral aspect of the conjoint tendon was identified and the fascia was removed. Subscap was identified. There was a large cyst along the bicipital groove that was apparent. The pec's insertion was identified and the first 1 to 2 cm were then carefully released from bone and the biceps was then tenodesed using a heavy nonabsorbable suture. Once this was secured, it was tenotomized proximal to that. Dissection following the biceps proximally demonstrated that the cyst was a ganglion cyst in the biceps tendon, which was carefully dissected out and then this was sent for specimen for P. acnes as well as Gram stain and culture. The subscap was identified. It was found to have poor quality tissue. This was released en melinda with the capsule tagged with a #5 Ethibond suture. Dissection was carried through. There was evidence of full thickness massive tear of the supra and infraspinatus tendons. There was significant osteophytes at the greater tuberosity as well as lesser tuberosity with grade 4 changes to the glenohumeral joint. The subscap and capsule were released carefully and protected for later layered closure. The head was fully exposed. The osteophytes were removed using rongeur to expose the neck. The neck cut was free handed. Once this was completed, the head was removed and all osteophytes were removed the humeral head was then placed posteriorly in the body and the attention was directed to the glenoid. There were multiple loose bodies that were evident as well as fraying of the anterior, posterior, superior labrum, which was carefully released. The superior glenohumeral ligament as well as MGHL were identified and also released to allow for subscap mobilization. The inferior glenohumeral was also released carefully. The subscap was mobilized. The soft tissues were carefully dissected and the labrum was removed in its entirety inferiorly being very careful to remove off the inferior aspect of the glenoid with care to protect the neurovascular bundle. There were grade 4 changes to the glenoid as well as osteophyte apparent. The center of the glenoid was identified and the starting point was placed approximately 11 mm from the inferior aspect of the glenoid. There was moderate amount of wear of the glenoid. The Robertson glenoid guide was then placed and the pin was unicortically drilled with care to try to aim it anteriorly. The reamer was then positioned, which removed the thick sclerotic cortical bone, exposed some subchondral bone for healing. The center baseplate drill bit was then drilled to a depth of about 19 mm. All excess bone and debris were removed. The shoulder was irrigated. The final implant was then brought to the field, impacted carefully into position, it was secured, and found to be well fixed. The interlocking screws, anterior and superior were then placed with good purchase and carefully secured to prevent any rocking. The final implant glenoid was then brought to the table and gently impacted into the position and secured with the set screws. Once this was completed, attention was then directed to the humerus. The humerus was then delivered back to the wound. The starting awl was then used to acces the canal. The sizing guide was then trailed. The size 19 stem was found to have appropriate amount of fit and good purchase. This was then carefully removed with a mallet. The trial system was then assembled on the back table. The standard poly was placed and the shoulder was then carefully reduced. The shoulder was taken through range of motion, found to have forward flexion of about 155 which was better than preoperative which was 140, abduction to 100 degrees, external rotation to about 50 degrees, preoperatively it was 30 degrees. It was found to have appropriate amount of shuck. No evidence of dislocation on axial load and appropriate amount of deltoid tension as well as subscap tension was apparent. The shoulder was then carefully dislocated. The final implants were chosen and carefully impacted into position. Once it was impacted, trial poly was placed again, found to have good fixation, the final implant was impacted into position. The wound was copiously irrigated with sterile saline. Prior to the final implant placement, the transosseous tunnels were drilled into the humerus for lateral subscap closure. #5 Ethibond sutures were placed. The stem was impacted into the position with excellent purchase. The wounds were copiously irrigated with saline. The shoulder was reduced. The wounds were irrigated with sterile saline. The subscap was closed in a horizontal mattress configuration with gentle external rotation of the arm. The wound was irrigated again and an intraarticular drain was placed. The deltopectoral interval was closed with #2 Ethibond sutures. The wounds were irrigated again. The wound was closed in layers with 2-0 Vicryl and 3- 0 Monocryl. Sterile dressings were applied. He was awoken from anesthesia and transferred to the PACU in stable condition. POSTOPERATIVE PLAN: He will be admitted overnight. He did have some episodes of hypotension in the OR and required pressors. He will be monitored closely. Medicine will be consulted for assistance. He will receive 24 hours of postoperative antibiotics. He will be nonweightbearing. He will be working with physical therapy on postop day#1 and the drain will be discontinued on postop day#1. I will see the patient back in 10 to 14 days. DVT prophylaxis will be low molecular weight heparin while he is in the hospital, but he will not need after discharge due to no previous personal or family history of DVT. [id number]/[facility] #: [id number] MTDD
[2017-07-27] MEDS ORDERED: OMALIZUMAB SUBCUT SCH (09:00)
== END 2017-07-16 15:00 | disposition home or self-care (01) | DRG 483 ==
LOC: AA 05:59 → MEDTELE 17:13
PROVIDERS: ADMIT Orthopaedic Surgery; ATTEND Orthopaedic Surgery
PROC: 0LS30ZZ Reposition Right Upper Arm Tendon, Open Approach (ICD-10-PCS; 2017-07-15)
PROC: 0RRJ00Z Replacement of Right Shoulder Joint with Reverse Ball and Socket Synthetic Substitute, Open Approach (ICD-10-PCS; principal; 2017-07-15 07:30)
DX: M19.011 Primary osteoarthritis, right shoulder (principal); E87.2 Acidosis; I10 Essential (primary) hypertension; D72.829 Elevated white blood cell count, unspecified; G47.33 Obstructive sleep apnea (adult) (pediatric); M10.9 Gout, unspecified; K21.9 Gastro-esophageal reflux disease without esophagitis; Z96.659 Presence of unspecified artificial knee joint; Z82.49 Family history of ischemic heart disease and other diseases of the circulatory system; Z83.3 Family history of diabetes mellitus; Z82.3 Family history of stroke; M75.101 Unspecified rotator cuff tear or rupture of right shoulder, not specified as traumatic; R00.0 Tachycardia, unspecified; J45.50 Severe persistent asthma, uncomplicated; I95.81 Postprocedural hypotension; Z80.42 Family history of malignant neoplasm of prostate; Z79.82 Long term (current) use of aspirin
CPT/HCPCS: 36415; 71010; 80048; 80053; 83605; 83735; 84145; 85014; 85018; 85025; 87070; 87205; 87640; 87641; 93005; 93306; 94640; 94760; 96372; A9270-GY; J0690; J1650; J2001; J2250; J2270; J2357; J2543; J2704; J3010; J3475; J8540